=== PATIENT | male | born 1955 | race Caucasian/White ===

== ENCOUNTER → 2020-01-14 17:27 | Outpatient (CLI) | payer OTHER, SELFPAY | PROVIDERS: Visit Provider Physician Assistant | DX: R30.0 Dysuria (principal) | CPT/HCPCS: 87086 ==

== ENCOUNTER → 2020-01-14 17:28 | Outpatient (CLI) | payer OTHER, SELFPAY ==
--- NOTE | 2020-01-14 17:30 | DI.RAD.S_ITS ---
PROCEDURE: XR RIBS LT MIN 3V W CXR1V INDICATIONS: left sided rib pain TECHNIQUE: A total of 2 views of the left ribs were acquired, along with a single view chest. COMPARISON: None. FINDINGS: Surgical changes and devices: None. Bones and chest wall: No fractures or dislocations. No suspicious bony lesions. Overlying soft tissues appear unremarkable. Lungs and pleura: No pleural effusions or pneumothorax. Lungs appear clear. Mediastinum: Mediastinal contours appear normal. Heart size is normal. IMPRESSION: Normal for age, source of current left rib pain symptoms is not seen. Dictated by: Harry Morales M.D. on 01/15/2020 at 8:20 Approved by: Harry Morales M.D. on 01/15/2020 at 8:21
== END ==
PROVIDERS: Referring Provider Physician Assistant; Visit Provider Physician Assistant
DX: R07.81 Pleurodynia; R30.0 Dysuria
CPT/HCPCS: 71101; 87086

== ENCOUNTER → 2020-01-16 08:11 | Outpatient (CLI) | payer OTHER, SELFPAY ==
--- NOTE | 2020-01-16 08:15 | DI.CT.S_ITS ---
PROCEDURE: CT KIDNEY URETER BLADDER (KUB) INDICATIONS: Blood in urine TECHNIQUE: Noncontrast 5 mm thick sections acquired from the diaphragms to the symphysis. 5 mm thick coronal and sagittal reformats were then performed. For radiation dose reduction, the following was used: automated exposure control, adjustment of mA and/or kV according to patient size. COMPARISON: None. FINDINGS: Image quality: Excellent. Lung bases: Lung bases are clear. Heart size is normal. Urinary system: Both kidneys are normal in size. A 4 mm nonobstructing calculus is seen in the inferior pole of the left kidney. No hydronephrosis or perinephric fat stranding. Both ureters appear non-dilated throughout their expected courses. Bladder wall thickness is normal; no calcified bladder stones. The prostate is enlarged and has an irregular contour, but is not well evaluated on this noncontrast CT. There is partial loss of the normal fat plane between the prostate and lower rectum. A soft tissue nodule is seen adjacent to the left pelvic sidewall measuring 1.6 x 1.4 cm (image 85 of series 2). No additional soft tissue nodule superior to the right seminal vesicle measures 1.3 x 0.9 cm (image 76 of series 2. Other solid organs: Liver is normal in size. Gallbladder appears normal. Pancreas is normal in contours. Spleen is normal in size. No adrenal nodules. Peritoneum and bowel: Unenhanced bowel loops demonstrate normal wall thickness and caliber. A few diverticula are seen in the colon without signs of acute diverticulitis. Normal appendix. No free fluid or air. Nodes and vessels: No retroperitoneal or mesenteric adenopathy by size criteria. Aorta and inferior vena cava are normal in caliber. Mild atherosclerotic calcifications are seen in the aorta. Abdominal wall: No ventral hernias. Pelvis: No free pelvic fluid. No inguinal hernias. No significant inguinal lymphadenopathy. Bones: Degenerative changes are seen in the included spine. No suspicious osteoblastic or osteolytic lesion is seen. No vertebral body compression fractures. IMPRESSION: 1. Irregular contour of the prostate is not well evaluated on noncontrast CT, but is suspicious for malignancy, likely of prostate origin. A few small soft tissue nodules in the pelvis may represent mildly enlarged lymph nodes. Recommend correlation with PSA level, and possible prostate MRI if indicated. 2. A 4 mm nonobstructing calculus is seen in the inferior pole of the left kidney. No hydronephrosis. Dictated by: Nate Boggs M.D. on 01/16/2020 at 9:10 Approved by: Nate Boggs M.D. on 01/16/2020 at 9:21
== END ==
PROVIDERS: Referring Provider Physician Assistant; Visit Provider Physician Assistant
DX: R31.9 Hematuria, unspecified (principal); N40.0 Benign prostatic hyperplasia without lower urinary tract symptoms; N20.0 Calculus of kidney; K57.90 Diverticulosis of intestine, part unspecified, without perforation or abscess without bleeding
CPT/HCPCS: 74176